=== PATIENT | male | born 1975 | race Hispanic/Latino ===

== ENCOUNTER 2016-08-23 13:29 | Emergency (ER) | payer SELFPAY ==
[2016-08-23] MEDS ORDERED: KETOROLAC 60 MG/2 ML VIAL IM ONE (17:07)
== END 2016-08-23 18:23 | disposition home or self-care (01) ==
LOC: ER 13:29
DX: S92.331A Displaced fracture of third metatarsal bone, right foot, initial encounter for closed fracture (principal); S93.692A Other sprain of left foot, initial encounter; S93.691A Other sprain of right foot, initial encounter; S96.812A Strain of other specified muscles and tendons at ankle and foot level, left foot, initial encounter; S96.811A Strain of other specified muscles and tendons at ankle and foot level, right foot, initial encounter; X50.3XXA Overexertion from repetitive movements, initial encounter; Y93.01 Activity, walking, marching and hiking
CPT/HCPCS: 36415; 80053; 83605; 84550; 85025; 85652; 86141; 96372